=== PATIENT | male | born 1995 | race Two or more races ===

== ENCOUNTER 2016-05-04 11:31 | Outpatient (CLI) ==
[2015-12-24 01:28] VITALS: BMI 24.0
[2016-05-04 12:50] LABS: BASOPHILS # (AUTO) 0.1 K/uL (0-0.2); BASOPHILS % (AUTO) 0.6 % (0.0-3.0); EOSINOPHILS # (AUTO) 0.1 K/ul (0.0-0.7); EOSINOPHILS % (AUTO) 0.7 % (0.0-7.0); HEMATOCRIT 44.7 % (42.0-52.0); HEMOGLOBIN 14.4 g/dl (14.0-18.0); IMMATURE GRANULOCYTE % (AUTO) 0.3 % (0.0-5.0); LYMPHOCYTES # (AUTO) 3.2 K/uL (0.60-3.4); LYMPHOCYTES % (AUTO) 37.4 (10.0-50.0); MEAN CORPUSCULAR HEMOGLOBIN 25.2 pg (27.0-31.0); MEAN CORPUSCULAR HGB CONC 32.2 (31.8-35.4); MEAN CORPUSCULAR VOLUME 78.3 fl (80.0-94.0); MONOCYTES # (AUTO) 0.8 K/uL (0.4-2.0); MONOCYTES % (AUTO) 8.8 (0-10); NEUTROPHILS # (AUTO) 4.5 K/ul (2.0-6.9); NEUTROPHILS % (AUTO) 52.2; PLATELET COUNT 265 10^3/uL (140-440); RED BLOOD COUNT 5.71 10^6/ul (4.70-6.10); WHITE BLOOD COUNT 8.63 K/ul (4.2-10.2)
[2016-05-04 13:18] LABS: ALBUMIN 3.9 g/dL (3.4-5.0); ALBUMIN/GLOBULIN RATIO 1.34; ANION GAP 11.3; BILIRUBIN,TOTAL 0.61 mg/dL (0.00-1.20); BUN/CREATININE RATIO 9.19; CALCIUM 9.2 mg/dL (8.2-10.2); CHOL/HDL RATIO 2.5 (4.5-6.4); CREATININE 0.87 mg/dL (0.60-1.10); POTASSIUM 4.3 mmol/L (3.5-5.1); TOTAL PROTEIN 6.8 g/dL (6.4-8.2)
[2016-05-04 13:34] LABS: BILIRUBIN,URINE Negative (NEGATIVE); KETONES,URINE Negative (NEGATIVE); LEUKOCYTE ESTERASE ,URINE Negative (NEGATIVE); NITRITE,URINE Negative (NEGATIVE); PROTEIN,URINE Negative (NEGATIVE); URINE, BLOOD Negative (NEGATIVE)
[2016-05-04 13:36] LABS: ADD URINE MICROSCOPIC YES
[2016-05-07 07:57] LABS: HIV ANTIBODIES QUALITATIVE NON REACTIVE (Nonreactive)
[2016-05-07 07:58] LABS: RAPID PLASMA REAGIN NON REACTIVE
== END 2016-05-04 11:32 | disposition home or self-care (01) ==
LOC: LAB 11:31
PROVIDERS: ATTEND Nurse Practitioner Family
DX: Z72.51 High risk heterosexual behavior (principal); Z11.3 Encounter for screening for infections with a predominantly sexual mode of transmission; Z00.00 Encounter for general adult medical examination without abnormal findings
CPT/HCPCS: 36415; 80053; 80061; 80074; 81001; 84443; 85025; 86592; 86701; 87800

== ENCOUNTER 2017-01-25 18:14 | Emergency (ER) ==
[2017-01-25 18:21] VITALS: BP 129/84; TEMP 98.1; BMI 29.0
--- NOTE | 2017-01-25 19:07 | ED.PDOC ---
General ED Provider: Dr. DEENA CHACON Chief Complaint: Nausea/Vomiting Stated Complaint: Pateint states that he felt poorly when he woke up, went to work and started feeling worse vomited twice and has had persistent nausea-. Admits to having some chills but no fever. Admits to having body aches with headache Time Seen by Physician: 19:05 Mode of Arrival: Walk-In Information Source: Patient Exam Limitations: No limitations [facility] Provider: [facility] Nursing and Triage Documentation Reviewed and Agree: Yes GI Complaint Exam - Vomiting/Diarrhea Complaint/Exam Onset/Duration: 1 day Symptoms Are: Resolved (at 4 pm today) Episodes of Vomiting over last 24 Hours: 3 Episodes of Diarrhea Over Last 24 Hours: 0 Initial Severity: Moderate Current Severity: Mild Character of Vomiting: Reports: Non-bilious Character of Diarrhea: Reports: Watery. Denies: Bloody, Mucoid, Malodorous Aggravating: Reports: Food Alleviating: Reports: None Associated Signs and Symptoms: Reports: Dizziness (for few days ), Light- headedness. Denies: Melena, Hematemesis, Fever, Abdominal pain, Cramping Non-GI Risk Factors: Reports: None Surgical Obstruction Risk Factors: Reports: None Related Surgical History: Reports: None Abdominal Findings: Present: None Differential Diagnoses: Viral Gastroenteritis Review of Systems - Review Of Systems Constitutional: Reports: Chills, Malaise, Weakness, Loss of appetite. Denies: Fever Eyes: Reports: No symptoms Ears, Nose, Mouth, Throat: Reports: Throat pain. Denies: Ear pain, Ear discharge, Nose pain, Nose discharge, Epistaxis, Mouth pain, Mouth swelling, Loose teeth, Throat swelling Respiratory: Reports: No symptoms Cardiac: Reports: No symptoms GI: Reports: Nausea, Poor appetite, Vomiting : Reports: No symptoms Musculoskeletal: Reports: Back pain (chronic lower back) Skin: Reports: No symptoms Neurological: Reports: Headache. Denies: Anxiety, Depressed Endocrine: Reports: No symptoms Hematologic/Lymphatic: Reports: No symptoms All Other Systems: Reviewed and Negative Past Medical History - Past Medical History Previously Healthy: No Endocrine: Reports: None Cardiovascular: Reports: None Respiratory: Reports: Asthma Hematological: Reports: None Gastrointestinal: Reports: None Genitourinary: Reports: None Neuro/Psych: Reports: Anxiety, Depression Musculoskeletal: Reports: None Cancer: Reports: None Other Pertinent Past Medical History: history of syncopal episodes. - Surgical History General Surgical History: Reports: None - Family History Family History: Reports: Diabetes - Social History Smoking Status: Current every day smoker, Light tobacco smoker Hx Substance Use: No (marjuna) Alcohol Screening: Occasionally Pt Occupation: [employer] Lives: With family - Immunizations Influenza Vaccine within 12 Months: No Physical Exam - Physical Exam Appearance: Ill-appearing Ill-appearing: Mild Pain Distress: None Eyes: NEIL, EOMI, Conjunctiva clear ENT: Ears normal, Nose normal, Oropharynx normal Neck: Supple Respiratory: Airway patent, Breath sounds clear, Breath sounds equal, Respirations nonlabored Cardiovascular: RRR, Pulses normal, No rub, No murmur GI/: Soft, Nontender, No masses, Bowel sounds normal, No Organomegaly Musculoskeletal: Normal strength, ROM intact, No edema, No calf tenderness Skin: Warm Neurological: Sensation intact Psychiatric: Affect appropriate, Mood appropriate Critical Care Note - Critical Care Note Total Time (mins): 0 Course - Course Hematology/Chemistry: 01/25/17 19:17 01/25/17 19:17 Orders, Labs, Meds: Lab Review 01/25/17 01/25/17 01/25/17 19:17 19:17 19:38 WBC 9.69 RBC 5.58 Hgb 14.1 Hct 42.3 MCV 75.8 L MCH 25.3 L MCHC 33.3 RDW Coeff of Shanice 14.5 Plt Count 246 Immature Gran % (Auto) 0.2 Neut % (Auto) 44.6 Lymph % (Auto) 45.8 Clay % (Auto) 8.3 Eos % (Auto) 0.6 Baso % (Auto) 0.5 Immature Gran # (Auto) 0.0 Neut # 4.3 Lymph # 4.4 H Clay # 0.8 Eos # 0.1 Baso # 0.1 Sodium 141 Potassium 4.0 Chloride 108 H Carbon Dioxide 24 Anion Gap 13.0 BUN 13 Creatinine 1.02 Estimated GFR (MDRD) 91.00 BUN/Creatinine Ratio 12.74 Glucose 83 Calcium 9.6 Total Bilirubin 1.41 H AST 28 ALT 19 Alkaline Phosphatase 61 Total Protein 7.7 Albumin 4.3 Globulin 3.4 Albumin/Globulin Ratio 1.26 Influenza A (Rapid) Negative Influenza B (Rapid) Negative Orders Category Date Time Status ED IV/MEDIPORT/POWERPORT .ONCE EMERGENCY 01/25/17 19:15 Active CBC W/ AUTO DIFF Stat LAB 01/25/17 19:17 Completed COMPREHENSIVE METABOLIC PANEL Stat LAB 01/25/17 19:17 Completed MOLECULAR GROUP A STREP Stat LAB 01/25/17 19:38 Results RAPID FLU A/B Stat LAB 01/25/17 19:38 Completed STREP SCREEN Stat LAB 01/25/17 19:38 Results 0.9 % Sodium Chloride [Saline Flush] MEDS 01/25/17 19:15 Ordered 1 syr IVF PRN PRN Ondansetron HCl/Pf [Zofran 4 mg/2 ml] MEDS 01/25/17 19:15 Discontinued 4 mg IVP ONCE STA Sodium Chloride 0.9% [Sodium Chloride] 1,000 ml MEDS 01/25/17 19:14 Discontinued IV BOLUS Medications Generic Name Dose Route Start Last Admin Trade Name Freq PRN Reason Stop Dose Admin Sodium Chloride 1 syr 01/25/17 19:15 01/25/17 19:28 Saline Flush IVF 1 syr PRN PRN Administration To flush IV Discontinued Medications Generic Name Dose Route Start Last Admin Trade Name Freq PRN Reason Stop Dose Admin Sodium Chloride 1,000 mls @ 1,000 mls/hr 01/25/17 19:14 01/25/17 19:28 Sodium Chloride IV 01/25/17 20:13 1,000 mls/hr BOLUS STA Administration Ondansetron HCl 4 mg 01/25/17 19:15 01/25/17 19:28 Zofran 4 Mg/2 Ml IVP 01/25/17 19:16 4 mg ONCE STA Administration Vital Signs: Temp Pulse Resp BP Pulse Ox 01/25/17 18:14 98.1 F 77 20 129/84 97 Departure - Departure Time of Disposition: 20:50 Disposition: HOME SELF-CARE Discharge Problem: Viral syndrome, Dehydration Instructions: Viral Syndrome (ED), Dehydration (ED) Condition: Stable Pt referred to PMD for follow-up: Yes Additional Instructions: Push fluids Follow up with PCP in 3 days Take medications as needed for Nausea Prescriptions: Ondansetron HCl [Zofran Tab] 4 mg PO Q8H PRN #14 tablet PRN Reason: Nausea / Vomiting Allergies/Adverse Reactions: Allergies No Known Allergies Allergy (Verified 01/25/17 18:22) Home Medications: Ambulatory Orders Albuterol Sulfate [Proair Hfa] 2 puff IH Q6H PRN 10/27/15 Ondansetron HCl [Zofran Tab] 4 mg PO Q8H PRN #14 tablet 01/25/17
[2017-01-25] MEDS ORDERED: SODIUM CHLORIDE 1,000 ML IV STA (19:14)
[2017-01-25] MEDS ORDERED: ZOFRAN 4 MG/2 ML IVP STA (19:15)
[2017-01-25 19:25] LABS: BASOPHILS # (AUTO) 0.1 K/uL (0-0.2); BASOPHILS % (AUTO) 0.5 % (0.0-3.0); EOSINOPHILS # (AUTO) 0.1 K/ul (0.0-0.7); EOSINOPHILS % (AUTO) 0.6 % (0.0-7.0); HEMATOCRIT 42.3 % (42.0-52.0); HEMOGLOBIN 14.1 g/dl (14.0-18.0); IMMATURE GRANULOCYTE % (AUTO) 0.2 % (0.0-5.0); LYMPHOCYTES # (AUTO) 4.4 K/uL (0.60-3.4); LYMPHOCYTES % (AUTO) 45.8 (10.0-50.0); MEAN CORPUSCULAR HEMOGLOBIN 25.3 pg (27.0-31.0); MEAN CORPUSCULAR HGB CONC 33.3 (31.8-35.4); MEAN CORPUSCULAR VOLUME 75.8 fl (80.0-94.0); MONOCYTES # (AUTO) 0.8 K/uL (0.4-2.0); MONOCYTES % (AUTO) 8.3 (0-10); NEUTROPHILS # (AUTO) 4.3 K/ul (2.0-6.9); NEUTROPHILS % (AUTO) 44.6; PLATELET COUNT 246 10^3/uL (140-440); RED BLOOD COUNT 5.58 10^6/ul (4.70-6.10); WHITE BLOOD COUNT 9.69 K/ul (4.2-10.2)
[2017-01-25 19:44] LABS: ALBUMIN 4.3 g/dL (3.4-5.0); ALBUMIN/GLOBULIN RATIO 1.26; BILIRUBIN,TOTAL 1.41 mg/dL (0.00-1.20); BUN/CREATININE RATIO 12.74; CALCIUM 9.6 mg/dL (8.2-10.2); CREATININE 1.02 mg/dL (0.60-1.10); TOTAL PROTEIN 7.7 g/dL (6.4-8.2)
[2017-01-25 20:07] LABS: FLU INTERNAL QC INTERNAL QC VALID; RAPID FLU A NEGATIVE (NEGATIVE); RAPID FLU B NEGATIVE (NEGATIVE)
== END 2017-01-25 21:00 | disposition home or self-care (01) ==
LOC: ED 18:14
DX: B34.9 Viral infection, unspecified (principal); E86.0 Dehydration; F17.210 Nicotine dependence, cigarettes, uncomplicated
CPT/HCPCS: 36415; 80053; 85025; 87651; 87804; 87880; 96361; 96374; 96375; 99283

== ENCOUNTER 2017-04-23 09:01 | Emergency (ER) ==
[2017-04-23 09:06] VITALS: BP 127/84; TEMP 97.1; BMI 28.1
--- NOTE | 2017-04-23 09:19 | ED.PDOC ---
General ED Provider: Dr. DEENA CHACON Chief Complaint: Nausea/Vomiting Stated Complaint: Patient is a 21 year old male who comes to the ER with complains of Nausea, vomiting mostly in the mornings for one week, Cold sweats at times but no fever. Admits to Abdominal cramps mostly on the left lower quadrant. Time Seen by Physician: 09:17 Mode of Arrival: Walk-In Information Source: Family Exam Limitations: No limitations [facility] and T[facility] Documentation Reviewed and Agree: Yes Reviewed sepsis parameters & appropriate labs ordered?: No System Inflammatory Response Syndrome: Not Applicable Sepsis Protocol: For patient's 13 years and over: Temp is 96.8 and below OR 101 and greater Pulse >90 BPM Resp >20/minute Acutely Altered Mental Status Are patient's symptoms suggestive of a new infection, such as: -Pneumonia -Skin, Soft Tissue -Endocarditis -UTI -Bone, Joint Infection -Implantable Device -Acute Abdominal Infection -Wound Infection -Meningitis -Blood Stream Catheter Infection -Unknown System Inflammatory Response Syndrome: Not Applicable Review of Systems - Review Of Systems Constitutional: Reports: No symptoms Eyes: Reports: No symptoms Ears, Nose, Mouth, Throat: Reports: No symptoms Respiratory: Reports: No symptoms Cardiac: Reports: No symptoms GI: Reports: No symptoms : Reports: No symptoms Musculoskeletal: Reports: No symptoms Skin: Reports: No symptoms Neurological: Reports: No symptoms Endocrine: Reports: No symptoms Hematologic/Lymphatic: Reports: No symptoms All Other Systems: Reviewed and Negative Past Medical History - Past Medical History Previously Healthy: No Endocrine: Reports: None Cardiovascular: Reports: None Respiratory: Reports: Asthma Hematological: Reports: None Gastrointestinal: Reports: None Genitourinary: Reports: None Neuro/Psych: Reports: Anxiety, Depression Musculoskeletal: Reports: None Cancer: Reports: None Other Pertinent Past Medical History: history of syncopal episodes. - Surgical History General Surgical History: Reports: None - Family History Family History: Reports: Diabetes - Social History Smoking Status: Current every day smoker (10 cigg per day ), Light tobacco smoker Hx Substance Use: No (marjuna) Alcohol Screening: Occasionally - Immunizations Influenza Vaccine within 12 Months: No Physical Exam - Physical Exam Appearance: Ill-appearing Ill-appearing: Mild Pain Distress: Mild Eyes: NEIL, EOMI, Conjunctiva clear ENT: Ears normal, Nose normal, Oropharynx normal Respiratory: Airway patent, Breath sounds clear, Breath sounds equal, Respirations nonlabored Cardiovascular: RRR, Pulses normal, No rub, No murmur GI/: Tender (mild left lower quadrant no rebound no gaurding. ) Musculoskeletal: Normal strength, ROM intact, No edema, No calf tenderness Skin: Warm, Dry, Normal color Neurological: Sensation intact, Motor intact, Reflexes intact, Cranial nerves intact, Alert, Oriented Psychiatric: Affect appropriate, Mood appropriate Critical Care Note - Critical Care Note Total Time (mins): 0 Course - Course Orders, Labs, Meds: Lab Review 04/23/17 09:15 Influ A Molecular Assay Negative by naat Influ B Molecular Assay Negative by naat Orders Category Date Time Status FLU A & B MOLECULAR [FLU A/B MOLECULAR] Stat LAB 04/23/17 09:15 Completed MOLECULAR GROUP A STREP Stat LAB 04/23/17 09:15 Completed Vital Signs: Temp Pulse Resp BP Pulse Ox 04/23/17 09:02 97.1 F L 73 20 127/84 99 Departure - Departure Time of Disposition: 10:19 Disposition: HOME SELF-CARE Discharge Problem: Viral illness Instructions: Viral Syndrome (ED) Condition: Stable Pt referred to PMD for follow-up: Yes IPMP verified?: No Additional Instructions: Push fluids Alternate Tylenol with Motrin Take zofran as needed for Nausea. Take Bentyl as needed for Abdominal cramping. Follow up with PCP in 3 days Prescriptions: Dicyclomine HCl [Bentyl] 10 mg PO TID PRN #20 capsule PRN Reason: Abdominal Pain Ondansetron HCl [Zofran Tab] 4 mg PO Q8H PRN #14 tablet PRN Reason: Nausea / Vomiting Allergies/Adverse Reactions: Allergies No Known Allergies Allergy (Verified 04/23/17 09:07) Home Medications: Ambulatory Orders Albuterol Sulfate [Proair Hfa] 2 puff IH Q6H PRN 10/27/15 Dicyclomine HCl [Bentyl] 10 mg PO TID PRN #20 capsule 04/23/17 Ondansetron HCl [Zofran Tab] 4 mg PO Q8H PRN #14 tablet 04/23/17 Disposition Discussed With: Patient
== END 2017-04-23 10:30 | disposition home or self-care (01) ==
LOC: ED 09:01
DX: B34.9 Viral infection, unspecified (principal); F17.210 Nicotine dependence, cigarettes, uncomplicated
CPT/HCPCS: 87502; 87651; 99283

== ENCOUNTER 2017-06-23 16:11 | Outpatient (CLI) | END 2017-06-23 16:12 | disposition home or self-care (01) | LOC: FCC-LAB 16:11 | PROVIDERS: ATTEND Nurse Practitioner Family | DX: J02.9 Acute pharyngitis, unspecified (principal); J04.0 Acute laryngitis | CPT/HCPCS: 87651 ==

== ENCOUNTER 2017-08-16 12:18 | Outpatient (CLI) ==
--- NOTE | 2017-08-16 14:10 | US ---
EXAM: Thyroid ultrasound HISTORY: Goiter. COMPARISON: Thyroid ultrasound 12/24/2014 TECHNIQUE: Sonographic evaluation of the thyroid was performed with limited doppler. FINDINGS: The right thyroid measures 6.6 x 2.0 x 2.4 cm. The thyroid is very heterogeneous with no definitive mass identified. Color Doppler flow is symmetric. There is a 0.3 x 0.3 x 0.4 cm anechoic cyst prese nt. Calcifications are also present. The isthmus measures 0.8 cm in thickness. The left thyroid measures 5.5 x 2.2 x 2.3 cm. There is a complex lesion measuring 0.6 x 0.5 x 0.5 cm in the inferior left thyroid. Echogenicity is very heterogeneous. IMPRESSION: 1. No change in the extremely heterogeneous appearance of the thyroid when compared to 2015 most con sistent with diffuse parenchymal process. 2. Complex nodule in the left and cyst on the right are sub centimeter in size. Follow-up ultrasoun d is 6 months to 1 year may be obtained as clinically indicated.
== END 2017-08-16 12:19 | disposition home or self-care (01) ==
LOC: RAD 12:18
PROVIDERS: ATTEND Physician Assistant
DX: E04.9 Nontoxic goiter, unspecified (principal)

== ENCOUNTER 2017-09-21 19:35 | Emergency (ER) | payer OTHER ==
[2017-09-21 19:40] VITALS: BP 122/86; TEMP 97.5; BMI 25.7
[2017-09-21] MEDS ORDERED: MOTRIN PO STA (20:27)
--- NOTE | 2017-09-21 20:33 | ED.PDOC ---
General ED Provider: Dr. DEENA CHACON Chief Complaint: Earache Stated Complaint: my ear hurts Time Seen by Physician: 20:33 Mode of Arrival: Walk-In Information Source: Patient Primary Care Provider: [facility] Nursing and Triage Documentation Reviewed and Agree: Yes Does patient meet sepsis criteria?: No If yes, has appropriate treatment been initiated?: No System Inflammatory Response Syndrome: Not Applicable Sepsis Protocol: For patient's 13 years and over: Temp is 96.8 and below OR 101 and greater Pulse >90 BPM Resp >20/minute Acutely Altered Mental Status Are patient's symptoms suggestive of a new infection, such as: -Pneumonia -Skin, Soft Tissue -Endocarditis -UTI -Bone, Joint Infection -Implantable Device -Acute Abdominal Infection -Wound Infection -Meningitis -Blood Stream Catheter Infection -Unknown Review of Systems - Review Of Systems Constitutional: Reports: No symptoms Eyes: Reports: No symptoms Ears, Nose, Mouth, Throat: Reports: Ear pain Respiratory: Reports: No symptoms Cardiac: Reports: No symptoms GI: Reports: No symptoms : Reports: No symptoms Musculoskeletal: Reports: No symptoms Skin: Reports: No symptoms Neurological: Reports: No symptoms Endocrine: Reports: No symptoms Hematologic/Lymphatic: Reports: No symptoms All Other Systems: Reviewed and Negative Past Medical History - Past Medical History Previously Healthy: No Endocrine: Reports: None Cardiovascular: Reports: None Respiratory: Reports: Asthma Hematological: Reports: None Gastrointestinal: Reports: None Genitourinary: Reports: None Neuro/Psych: Reports: Anxiety, Depression Musculoskeletal: Reports: None Cancer: Reports: None Other Pertinent Past Medical History: history of syncopal episodes. - Surgical History General Surgical History: Reports: None - Family History Family History: Reports: Diabetes - Social History Smoking Status: Current every day smoker, Heavy tobacco smoker Hx Substance Use: No Alcohol Screening: Occasionally - Immunizations Tetanus Shot up to Date: Yes Influenza Vaccine within 12 Months: No Physical Exam - Physical Exam Appearance: Well-appearing, Well-nourished Pain Distress: Mild Eyes: NEIL, EOMI, Conjunctiva clear ENT: Ears normal, Nose normal, Oropharynx normal Respiratory: Airway patent, Breath sounds clear, Breath sounds equal, Respirations nonlabored Cardiovascular: RRR, Pulses normal, No rub, No murmur GI/: Soft, Nontender, No masses, Bowel sounds normal, No Organomegaly Musculoskeletal: Normal strength, ROM intact, No edema, No calf tenderness Skin: Warm, Dry, Normal color Neurological: Sensation intact, Motor intact, Reflexes intact, Cranial nerves intact, Alert, Oriented Psychiatric: Affect appropriate, Mood appropriate Critical Care Note - Critical Care Note Total Time (mins): 0 Course - Course Orders, Labs, Meds: Orders Category Date Time Status Ibuprofen [Motrin] MEDS 09/21/17 20:27 Stat 800 mg PO ONCE STA Medications Generic Name Dose Route Start Last Admin Trade Name Freq PRN Reason Stop Dose Admin Ibuprofen 800 mg 09/21/17 20:27 Motrin PO 09/21/17 20:28 ONCE STA Vital Signs: Temp Pulse Resp BP Pulse Ox 09/21/17 19:36 97.5 F L 80 16 122/86 98 Departure - Departure Time of Disposition: 20:33 Disposition: HOME SELF-CARE Discharge Problem: Otalgia of left ear Instructions: Earache (ED) Condition: Stable Pt referred to PMD for follow-up: Yes IPMP verified?: No Additional Instructions: Take Motrin as needed for pain Follow up with PCP in 3 - 5 days Prescriptions: Ibuprofen [Motrin] 600 mg PO Q6H PRN #14 tablet PRN Reason: Analgesia Allergies/Adverse Reactions: Allergies No Known Allergies Allergy (Verified 04/23/17 09:07) Home Medications: Ambulatory Orders Albuterol Sulfate [Proair Hfa] 2 puff IH Q6H PRN 10/27/15 Ibuprofen [Motrin] 600 mg PO Q6H PRN #14 tablet 09/21/17 Disposition Discussed With: Patient
== END 2017-09-21 20:50 | disposition home or self-care (01) ==
LOC: ED 19:35
DX: H92.02 Otalgia, left ear (principal); F17.210 Nicotine dependence, cigarettes, uncomplicated
CPT/HCPCS: 99283

== ENCOUNTER 2017-11-14 19:16 | Emergency (ER) ==
[2017-11-14 19:19] VITALS: BP 149/85; TEMP 98.6; BMI 27.0
--- NOTE | 2017-11-14 19:43 | ED.PDOC ---
General ED Provider: Dr. DEENA CHACON Chief Complaint: Fall Stated Complaint: Patient is a 21 year old who states he hurt his back several weeks ago after a fall. He thought he recovered well but has has some pain back and forth. This morning he woke up with pain 10/10 went to work and the pain keep getting worse. So come to the ER. Rates the pain is at 7/10 at this time. located on the left lower back and radiating to the buttocks. worse with walking. Time Seen by Physician: 19:39 Information Source: Patient Exam Limitations: No limitations Primary Care Provider: [facility] Nursing and Triage Documentation Reviewed and Agree: Yes Does patient meet sepsis criteria?: No System Inflammatory Response Syndrome: Not Applicable Sepsis Protocol: For patient's 13 years and over: Temp is 96.8 and below OR 101 and greater Pulse >90 BPM Resp >20/minute Acutely Altered Mental Status Are patient's symptoms suggestive of a new infection, such as: -Pneumonia -Skin, Soft Tissue -Endocarditis -UTI -Bone, Joint Infection -Implantable Device -Acute Abdominal Infection -Wound Infection -Meningitis -Blood Stream Catheter Infection -Unknown Musculoskeletal Complaint Exam - Back Pain Complaint/Exam Mechanism of Injury: Reports: Trauma (remote > 2 weeks ) Onset/Duration: 1 day Symptoms Are: Still present (worse today) Timing: Constant Initial Severity: Severe Current Severity: Severe Location: Reports: Radiating Character: Reports: Throbbing, Spasmodic Aggravating: Reports: Movements, Lifting, Bending, Walking Alleviating: Reports: None Associated Signs and Symptoms: Denies: Swelling, Redness, Bruising, Fever, Weakness, Numbness, Tingling, Abdominal pain, Flank pain, Bladder incontinence, Bowel incontinence, Weight loss, Pain with weight bearing TAD Risk Factors: Reports: None AAA Risk Factors: Reports: None Cauda Equina Risk Factors: Reports: None Epidural Abcess Risk Factors: Reports: None Related Surgical History: Reports: None Focal Tenderness: Yes Paraspinal Muscle Tenderness: Yes (left ) Paraspinal Muscle Spasm: Yes Scoliosis: No Lordosis: No Kyphosis: No SLR Test: Right Negative, Left Positive Hip Motion Testing Pain: Right Negative, Left Negative Focal Weakness: Present: None Focal Sensory Loss: Present: None Gait: Present: Normal Back Picture: 1 - pain and spasms 2 - spasms Differential Diagnoses: Herniated Disk, Strain, Sprain, Other (sciatica ) Review of Systems - Review Of Systems Constitutional: Reports: No symptoms Eyes: Reports: No symptoms Ears, Nose, Mouth, Throat: Reports: No symptoms Respiratory: Reports: No symptoms Cardiac: Reports: No symptoms GI: Reports: No symptoms : Reports: No symptoms Musculoskeletal: Reports: Back pain Skin: Reports: No symptoms Neurological: Reports: Anxiety Endocrine: Reports: No symptoms Hematologic/Lymphatic: Reports: No symptoms All Other Systems: Reviewed and Negative Past Medical History - Past Medical History Previously Healthy: No Endocrine: Reports: None Cardiovascular: Reports: None Respiratory: Reports: Asthma Hematological: Reports: None Gastrointestinal: Reports: None Genitourinary: Reports: None Neuro/Psych: Reports: Anxiety, Depression, Bipolar Disorder Musculoskeletal: Reports: None Cancer: Reports: None Other Pertinent Past Medical History: history of syncopal episodes. ADD - Surgical History General Surgical History: Reports: Tonsillectomy, Adenoidectomy - Family History Family History: Reports: Diabetes - Social History Smoking Status: Current every day smoker, Light tobacco smoker Hx Substance Use: No (marjuna) Alcohol Screening: Occasionally - Immunizations Tetanus Shot up to Date: Yes Influenza Vaccine within 12 Months: No Physical Exam - Physical Exam Appearance: Well-appearing, No pain distress, Well-nourished Ill-appearing: Mild Pain Distress: Severe Eyes: NEIL, EOMI, Conjunctiva clear ENT: Ears normal, Nose normal, Oropharynx normal Respiratory: Airway patent, Breath sounds clear, Breath sounds equal, Respirations nonlabored Cardiovascular: RRR, Pulses normal, No rub, No murmur GI/: Soft, Nontender, No masses, Bowel sounds normal, No Organomegaly Musculoskeletal: Normal strength, No edema, No calf tenderness, Limited ROM Skin: Warm, Dry, Normal color Neurological: Sensation intact, Motor intact, Reflexes intact, Cranial nerves intact, Alert, Oriented Psychiatric: Affect appropriate, Mood appropriate Re-Evaluation - Re-Evaluation Time of Re-Evaluation: 20:26 Status: Improved Pain Level: Pain almost all gone. Able to move without difficulty. Critical Care Note - Critical Care Note Total Time (mins): 0 Course - Course Orders, Labs, Meds: Orders Category Date Time Status Hydrocodone Bit/Acetaminophen [[place] 5-325] MEDS 11/14/17 19:38 Discontinued 1 tab PO ONCE STA Ketorolac Tromethamine [Toradol] MEDS 11/14/17 19:38 Discontinued 60 mg IM ONCE STA Orphenadrine Citrate [Norflex] MEDS 11/14/17 19:38 Discontinued 60 mg IM ONCE STA Medications Discontinued Medications Generic Name Dose Route Start Last Admin Trade Name Freq PRN Reason Stop Dose Admin Hydrocodone Bitart/Acetaminophen 1 tab 11/14/17 19:38 11/14/17 19:50 [place] 5-325 PO 11/14/17 19:39 1 tab ONCE STA Administration Ketorolac Tromethamine 60 mg 11/14/17 19:38 11/14/17 19:50 Toradol IM 11/14/17 19:39 60 mg ONCE STA Administration Orphenadrine Citrate 60 mg 11/14/17 19:38 11/14/17 19:49 Norflex IM 11/14/17 19:39 60 mg ONCE STA Administration Vital Signs: Temp Pulse Resp BP Pulse Ox 11/14/17 19:16 98.6 F 92 H 16 149/85 H 99 Departure - Departure Time of Disposition: 20:27 Disposition: HOME SELF-CARE Discharge Problem: Sciatica of left side Back pain Qualifiers: Back pain location: low back pain Chronicity: acute Back pain laterality: left Sciatica presence: with sciatica Sciatica laterality: sciatica of left side Qualified Code(s): M54.42 - Lumbago with sciatica, left side Instructions: Lumbar Radiculopathy (ED), Lower Back Exercises (ED) Condition: Stable Pt referred to PMD for follow-up: Yes IPMP verified?: No Additional Instructions: Take Medications as prescribed Follow up with PCP in 3 days Prescriptions: Hydrocodone Bit/Acetaminophen [[place] 5-325] 1 each PO Q6HR #7 tablet Cyclobenzaprine HCl [Flexeril] 10 mg PO DAILY PRN #25 tablet PRN Reason: spasms Ibuprofen [Motrin] 600 mg PO Q6H PRN #30 tablet PRN Reason: Analgesia Allergies/Adverse Reactions: Allergies No Known Allergies Allergy (Verified 11/14/17 19:19) Home Medications: Ambulatory Orders Cyclobenzaprine HCl [Flexeril] 10 mg PO DAILY PRN #25 tablet 11/14/17 Hydrocodone Bit/Acetaminophen [[place] 5-325] 1 each PO Q6HR #7 tablet 11/14/17 Ibuprofen [Motrin] 600 mg PO Q6H PRN #30 tablet 11/14/17 Disposition Discussed With: Patient
[2017-11-14] MEDS: NORFLEX IM STA (19:49)
[2017-11-14] MEDS: NORCO 5-325 PO STA (19:50)
[2017-11-14] MEDS: TORADOL IM STA (19:50)
== END 2017-11-14 20:34 | disposition home or self-care (01) ==
LOC: ED 19:16
DX: M54.42 Lumbago with sciatica, left side (principal); W19.XXXA Unspecified fall, initial encounter; F17.210 Nicotine dependence, cigarettes, uncomplicated
CPT/HCPCS: 96372; 99282

== ENCOUNTER 2017-12-01 13:48 | Outpatient (CLI) ==
--- NOTE | 2017-12-01 14:37 | CT ---
EXAM: CT of the abdomen pelvis without contrast History: Hematuria and left lower quadrant abdominal pain. Comparison: CT abdomen pelvis 06/20/2015 Technique: Multiplanar CT images through the abdomen pelvis were obtained without the administration of IV contrast Findings: Lung bases are clear. No acute osseous abnormalities. No discrete gallstones identified by CT. No focal liver or splenic lesions. No renal stones and no hydronephrosis. The visualized appendix is not dilated or inflamed. No peripancreatic inflammation. Adrenal glands are unremarkable. No bowel obstruction. No free air and no ascites. No bladder wall thickening. Prostate is not enlarged. No perirectal inflammation. No inflammatory stranding. Sca ttered colonic stool. Impression: No acute intra-abdominal or pelvic process.
== END 2017-12-01 13:49 | disposition home or self-care (01) ==
LOC: RAD 13:48
PROVIDERS: ATTEND Internal Medicine Nephrology
DX: R10.32 Left lower quadrant pain (principal); R31.9 Hematuria, unspecified

== ENCOUNTER 2017-12-16 17:23 | Outpatient (CLI) | END 2017-12-16 17:24 | disposition home or self-care (01) | LOC: LAB 17:23 | PROVIDERS: ATTEND Internal Medicine Nephrology | DX: R31.9 Hematuria, unspecified (principal); R10.9 Unspecified abdominal pain; Z79.899 Other long term (current) drug therapy | CPT/HCPCS: 36415; 80053; 81001; 82043; 82570; 83735; 84100; 84156; 84165; 84550; 85025; 85651; 86038; 86140; 86160; 86320; 86803; 87340 ==

== ENCOUNTER 2018-06-03 17:26 | Outpatient (CLI) | END 2018-06-03 17:46 | disposition short-term general hospital (02) | LOC: AMBL 17:26 | PROVIDERS: ATTEND Emergency Medicine | DX: R07.1 Chest pain on breathing (principal); F41.9 Anxiety disorder, unspecified; R73.9 Hyperglycemia, unspecified ==